=== PATIENT | female | born 1995 | race Caucasian/White ===

== ENCOUNTER 2018-01-11 21:00 | Inpatient (IN) | payer OTHER ==
[~2018-01-11] VITALS: Ht 160 cm; Wt 84.8 kg
[2018-01-11 21:05] VITALS: Ht 160 cm; Wt 84.8 kg
[2018-01-11] MEDS ORDERED: ALBUTEROL0.63 MG/3 IH (23:47)
[2018-01-12 02:18] VITALS: BP 114/65
[2018-01-12 03:10] VITALS: BP 114/65
[2018-01-12 08:18] VITALS: BP 136/78
[2018-01-12 12:05] VITALS: BP 122/59
[2018-01-12 16:49] VITALS: BP 126/80
[2018-01-12 20:01] VITALS: BP 128/66
[2018-01-13 05:54] VITALS: BP 104/70
[2018-01-13 07:25] LABS: PLATELET COUNT 334 x10^3mcL (130-400); RED CELL DISTRIBUTION WIDTH 13.3 % (11.5-14.5)
[2018-01-13 07:36] LABS: BASOPHIL % 0 % (0-2)
[2018-01-13 07:37] LABS: CALCIUM 9.2 mg/dL (8.5-10.1); CHLORIDE SERUM 101 mmol/L (98-107); CREATININE SERUM 0.7 mg/dL (0.6-1.0); GFR1 > 60 mL/min; GLUCOSE SERUM 151 mg/dL (74-106); POTASSIUM SERUM 3.6 mmol/L (3.5-5.1); SODIUM SERUM 139 mmol/L (136-145)
[2018-01-13 10:49] VITALS: BP 104/70
== END 2018-01-13 11:33 | disposition home or self-care (01) | DRG 141 ==
LOC: ED 21:00 → DU 01-12 00:27
PROVIDERS: Internal Medicine Pulmonary Disease
DX: J45.902 Unspecified asthma with status asthmaticus (principal); K21.9 Gastro-esophageal reflux disease without esophagitis
CPT/HCPCS: 87804; 90658; J2920; J2930; J7512; J7613; J7620; J7626; J7644; Q0092

== ENCOUNTER 2019-02-09 10:53 | Observation (INO) | payer OTHER ==
[~2019-02-09] VITALS: Ht 160 cm; Wt 92.1 kg
[~2019-02-09 10:53] MED LIST: ALBUTEROL0.63 MG/3 IH
[2019-02-09 10:56] VITALS: Ht 160 cm; Wt 92.1 kg
--- NOTE | 2019-02-09 11:07 | NUR ---
PT C/O SOB/WHEEZING SINCE SATURDAY. STS NO RELIEF W/ALBUTEROL OR NEBULIZER TREATMENT FROM HOME. SOB PROGRESSIVELY WORSE TODAY. PT SPEAKING IN CLEAR FULL SENTENCES. RESPS E/U. NO S/S OF DISTRESS NOTED. COMFORT MEASURES IMPLEMENTED. CALL LIGHT W/IN REACH. WILL CTM.
--- NOTE | 2019-02-09 11:12 | NUR ---
MEDICATED ORDERED. PLEASE SEE EMR.
[2019-02-09 12:47] LABS: PLATELET COUNT 305 x10^3mcL (130-400); RED CELL DISTRIBUTION WIDTH 12.6 % (11.5-14.5)
--- NOTE | 2019-02-09 12:58 | NUR ---
MEDICATED ORDERED. PLEASE SEE EMR.
[2019-02-09 12:59] LABS: CALCIUM 8.6 mg/dL (8.5-10.1); CHLORIDE SERUM 104 mmol/L (98-107); CREATININE SERUM 0.7 mg/dL (0.6-1.0); GFR1 > 60 mL/min; GLUCOSE SERUM 111 mg/dL (74-106); POTASSIUM SERUM 3.4 mmol/L (3.5-5.1); SODIUM SERUM 140 mmol/L (136-145)
[2019-02-09 13:03] LABS: ALBUMIN 4.1 g/dL (3.4-5.0); ALKALINE PHOSPHATASE 55 U/L (46-116); ALT/SGPT 24 U/L (14-59); AST/SGOT 12 U/L (15-37); BILIRUBIN TOTAL 0.36 mg/dL (0.20-1.00); TOTAL PROTEIN, SERUM 7.5 g/dL (6.4-8.2)
[2019-02-09 14:38] VITALS: BP 118/70
--- NOTE | 2019-02-09 14:50 | NUR ---
RECEIVED PT FROM ER, PT ADMIT FOR ASTHMA EXACERBATION, PT IS A/O X4, VERBAL RESPONSIVE, ABLE TO TELL WHAT SHE NEEDS. LUNG SOUND WHEEZING [place], DENY ANY SOB, PO2 97% IN ROOM AIR, PT DENY ANY CHEST PAIN OR DISCOMFORT, BOWEL SOUND PRESENT ALL 4 QUADRANTS, NO DISTENTION, NO TENDER. PEDAL PULSE PRESENT BOTH FEET, NO EDEMA, IV AT LEFT AC, NO LEAKING, NO INFILTRATION. ALL ADLS ASSIST, ALL NEED MET, CALL LIGHT IN REACH, WILL CONTINUE TO MONITOR.
--- NOTE | 2019-02-09 15:06 | NUR ---
ASSUMED CARE OF PATIENT. ALERT AND ORIENTED X4. NO COMPLAINTS OF PAIN OR DISCOMFORT. PULSES PALPABLE BILATERALY, NO EDEMA NOTED. EXPIRATORY WHEEZING ON BILATERAL LUNGS. NO SOB OR RESPIRATORY DISTRESS NTOED. BOWEL SOUNDS PRESENT IN ALL 4 QUADRANTS. VOIDING WITH NO ISSUE. AMBULATING INDEPENDENTLY. SKIN APPEARS CLEAN DRY INTACT. IV ON LEFT AC PATENT AND INFUSING WELL. BED LOCKED AND IN LOWEST POSITION. CALL LIGHT WITHIN REACH. NONSKID SOCKS IN PLACE. WILL CONTINUE TO MONITOR.
[2019-02-09 15:38] VITALS: BP 118/70
[2019-02-09 17:31] VITALS: BP 126/78
[2019-02-09 17:37] VITALS: BP 126/78
--- NOTE | 2019-02-09 17:52 | NUR ---
DISCHARGE INSTRUCTIONS PROVIDED.
--- NOTE | 2019-02-09 18:07 | NUR ---
PATIENT DISCHARGED. LEFT UNIT VIA WHEELCHAIR AND CONTRACT ACCOUNTANT. PATIENT ID BANDS REMOVED. IV CATHTER D/C. LEFT WITH ALL BELONGINGS AND DISCHARGE PAPERWORK WITH PRESCRIPTIONS. PATIENT HAS NO APPARENT DISTRESS OR DISCOMFORT. NO SOB OR RESPIRATORY DISTRESS.
== END 2019-02-09 18:17 | disposition home or self-care (01) | DRG 141 ==
LOC: ED 10:53 → MU 13:13
PROVIDERS: Emergency Medicine; ADMIT Internal Medicine Pulmonary Disease
DX: J45.901 Unspecified asthma with (acute) exacerbation (principal); Z79.51 Long term (current) use of inhaled steroids
CPT/HCPCS: G0378; J2920; J3475; J7030; J7512; J7613; J7644; Q0092

== ENCOUNTER 2020-08-26 22:09 | Emergency (ER) | payer OTHER ==
[~2020-08-26] VITALS: Ht 162.6 cm; Wt 86.2 kg
[2020-08-26 22:20] VITALS: Ht 162.6 cm; Wt 86.2 kg
[2020-08-27 00:19] VITALS: BP 97/64
== END 2020-08-27 00:19 | disposition home or self-care (01) ==
LOC: ED 22:09
DX: S86.912A Strain of unspecified muscle(s) and tendon(s) at lower leg level, left leg, initial encounter (principal); X58.XXXA Exposure to other specified factors, initial encounter; Y93.89 Activity, other specified; Y92.89 Other specified places as the place of occurrence of the external cause; Y99.8 Other external cause status
CPT/HCPCS: Q0092

== ENCOUNTER 2020-08-27 15:11 | Emergency (ER) | payer OTHER ==
[2020-08-27 15:21] VITALS: BP 117/81
== END 2020-08-27 16:19 | disposition home or self-care (01) ==
LOC: ED 15:11
DX: M25.562 Pain in left knee (principal); M79.89 Other specified soft tissue disorders; J45.909 Unspecified asthma, uncomplicated
CPT/HCPCS: J1885